=== PATIENT | male | born 1945 | race Caucasian/White ===

== ENCOUNTER 2021-12-19 07:11 | Day surgery (SDC) | payer MEDICARE, SELFPAY ==
[2021-12-19] VITALS (7 sets, daily range): BP systolic 103–165; BP diastolic 63–78; PULSE 82–105; RESP 16–18; TEMP 36.1–36.6; O2SAT 94–99; BMI 32.1
[2021-12-19] MEDS: Lactated Ringers 1,000 ML 15 ML IV (08:01)
[2021-12-19] MEDS: Lidocaine 1% (5 ml sdv) 5 ML Vial (08:31)
[2021-12-19] MEDS: MethylPREDNISolone Acetate 40 MG/ML Vial IM (08:31)
[2021-12-19] MEDS: Bupivacaine 0.25% 30 ML Vial (08:31)
--- NOTE | 2021-12-19 08:40 | RAD_ITS ---
PROCEDURE: Genicular nerve steroid block. DATE OF EXAMINATION: 12/19/2021. INDICATION: Male, 76 years old. Knee pain. FLUOROSCOPY TIME (if supplied): (5.7 seconds.) minutes/seconds. 2 images were obtained. RAD/Fluoro Guided Needle Placement IMPRESSION: Intraoperative imaging provided for left geniculate nerve steroid block. Electronically Signed: Eliud Guy MD at 8:57 EDT ,
[2021-12-19 09:01] LABS: Bedside Glucose 245 mg/dL (74-106)
--- NOTE | 2021-12-19 12:19 | OP.PCM_ITS ---
Report of Operation Date of Procedure: 12/19/21 Description of Surgical Findings:: PREOPERATIVE DIAGNOSIS: Osteoarthritis of the left knee, nonoperative knee pain POSTOPERATIVE DIAGNOSIS: Osteoarthritis of the left knee, nonoperative knee pa in PROCEDURE PERFORMED: Left knee superomedial, superolateral, and inferomedial genicular nerves steroid injection under fluoroscopy guidance. ANESTHESIA: MAC. BLOOD LOSS: Minimal. COMPLICATIONS: None. DESCRIPTION OF PROCEDURE: History and physical of today was reviewed. Risks and benefits of the procedure were explained. The patient understood and agreed to proceed. Informed consent was obtained. IV inserted per routine protocol. The patient was taken to the operating room and placed in the supine position. The left knee was prepped and draped in a sterile fashion using iodine x3. Under fluoroscopy guidance on AP view, the left knee was visualized. The skin and subcutaneous tissue was anesthetized with approximately 5 mL of 1% lidocaine using a 25-gauge regular needle at the vicinity of the superomedial, superolateral, and inferomedial genicular nerves. Under direct visualization of fluoroscopy on AP view as well as lateral view, starting on the left superomedia l, ending on the left inferomedial, passing through the left superolateral genicular nerves, the needle was passed through the skin. The tip of the needle was maneuvered and directed towards the diaphyseal junction of each corresponding nerve. Once tip of the needle was in the vicinity of the diaphysis and in contact with the bone, after confirmation on AP as well as lateral view and repeated negative aspiration for blood, a total of 12 mL of preservative-free 0.25% Marcaine with 80 mg of Depo-Medrol was injected in divided doses between those three levels. The needles were then removed intact. The patient experienced no sign or symptoms of intravascular injection. The patient experienced no paresthesia. The procedure was completed without any apparent difficulty or any complications. The patient appeared to tolerate it well. ASSESSMENT AND PLAN: This is an 76-year-old male with osteoarthritis of the left knee, nonoperative knee pain status post left knee superior medial, superior lateral, inferior medial genicular nerves steroid injection under fluoroscopic guidance, she patient will continue his current medications, patient will follow in approximately 2 weeks for reevaluation.
== END 2021-12-19 09:57 | disposition home or self-care (01) ==
LOC: SDC 07:20 → AC 07:20
PROVIDERS: Referring Provider Anesthesiology Pain Medicine; Visit Provider Anesthesiology Pain Medicine
PROC: 3E0U3GC Introduction of Other Therapeutic Substance into Joints, Percutaneous Approach (ICD-10-PCS; CPT 20610; principal; 2021-12-19 08:35)
DX: M17.0 Bilateral primary osteoarthritis of knee (principal); E11.9 Type 2 diabetes mellitus without complications; Z79.4 Long term (current) use of insulin; I10 Essential (primary) hypertension; G47.33 Obstructive sleep apnea (adult) (pediatric); F32.A Depression, unspecified; Z79.899 Other long term (current) drug therapy
CPT/HCPCS: 64454; 01991; 76000; 77002; 82962; J7120